=== PATIENT | female | born 1960 | race Caucasian/White ===

== ENCOUNTER → 2025-02-05 | Outpatient (CLI) | payer OTHER, SELFPAY ==
[2025-02-05 18:58] LABS: Hematocrit 47.2 % (37-47); Hemoglobin 15.5 g/dL (12.0-15.0); Immature Granulocytes Count 0.090 X10^3/uL (0.0-0.0); Mean Corp Hgb Conc 32.8 g/dL (32-36); Mean Corpuscular Volume 94.2 fL (81-99); Mean Platelet Vol. 9.9 fl (6.2-12.0); NRBC Flagged by Analyzer 0 % (0-5); Platelet Count 279 K/mm3 (150-450); RBC Distribution Width CV 13.2 % (11.6-14.6); RBC Distribution Width SD 45.5 fl (35.1-43.9); Red Blood Count 5.01 M/mm3 (4.2-5.4); White Blood Count 13.7 K/mm3 (4.4-11.0)
[2025-02-05 19:00] LABS: Anion Gap 14 (5-15); Carbon Dioxide 25.8 mmol/L (21.0-32.0); Chloride 96 mmol/L (98-108); Potassium 4.5 mmol/L (3.3-5.1)
[2025-02-07 16:09] LABS: Angiotensin Convert Enzyme 50 U/L (14-82)
== END | disposition home or self-care (01) ==
LOC: MTLAB 15:23
PROVIDERS: PCP Family Medicine; Referring Provider Internal Medicine Pulmonary Disease; Visit Provider Internal Medicine Pulmonary Disease
DX: J44.9 Chronic obstructive pulmonary disease, unspecified (principal)
CPT/HCPCS: 36415; 80051; 82164; 85025

== ENCOUNTER → 2025-03-01 | Outpatient (CLI) | payer OTHER, SELFPAY ==
--- NOTE | 2025-03-01 13:38 | ECHOD_ITS ---
Reason For Study Reason For Study: COPD Procedure This was a 2D Doppler, Color Flow transthoracic echocardiogram. Exam performed in department. Left Ventricle Normal LV size. The left ventricular ejection fraction is 60 %. Stage 1 diastolic dysfunction. No regional wall motion abnormalities noted. Right Ventricle Normal RV size. Normal systolic function. Atria Normal left atrium. Normal right atrium. Mitral Valve Normal mitral valve. Tricuspid Valve Normal tricuspid valve. Unable to estimate RV systolic pressure due to insufficient tricuspid regurgitant envelope. Aortic Valve Trisinus/trileaflet aortic valve. Pulmonic Valve Normal pulmonic valve. Great Vessels Normal aortic root. The pulmonary artery is normal size. Inferior vena cava collapse with respiration. Pericardium/Pleural No pericardial effusion. MMode/2D Measurements & Calculations LVIDd: 4.9 cm IVSd: 1.1 cm Ao root diam: 3.0 cm LVIDs: 3.3 cm LVPWd: 0.92 cm RVDd: 3.6 cm FS: 32.6 % LAV(MOD-sp4): 29.2 ml LVAd ap4: 21.2 cm2 SV(MOD-sp4): 32.0 ml LVLd ap4: 6.8 cm SI(MOD-sp4): 13.7 ml/m2 EDV(MOD-sp4): 54.6 ml EDV(sp4-el): 56.2 ml LVAs ap4: 11.2 cm2 LVLs ap4: 5.1 cm ESV(MOD-sp4): 22.6 ml ESV(sp4-el): 20.9 ml EF(MOD-sp4): 58.7 % EF(sp4-el): 62.8 % SV(sp4-el): 35.3 ml LA A4 area: 12.7 cm2 LA dimension(2D): 3.3 cm RA A4 area: 12.3 cm2 Time Measurements MV dec time: 0.38 sec Doppler Measurements & Calculations MV E max jerome: 50.5 cm/sec Lat Peak E' Jerome: 7.9 cm/sec Med Peak E' Jerome: 5.1 cm/sec MV A max jerome: 53.9 cm/sec E/E' lat: 6.4 E/E' med: 9.9 MV E/A: 0.94 MV V2 max: 74.6 cm/sec Ao V2 max: 145.0 cm/sec MV max P.2 mmHg MV dec slope: 135.6 cm/sec2 Ao max P.4 mmHg MV V2 mean: 47.1 cm/sec Ao V2 mean: 103.4 cm/sec MV mean P.98 mmHg Ao mean P.8 mmHg MV V2 VTI: 21.4 cm Ao V2 VTI: 28.1 cm AV (velocity ratio): 0.95 LV V1 max: 127.0 cm/sec PA V2 max: 107.3 cm/sec LV V1 max P.5 mmHg PA V2 mean: 75.1 cm/sec LV V1 mean P.7 mmHg PA mean PG (full): 0.98 mmHg LV V1 mean: 90.3 cm/sec LV V1 VTI: 26.6 cm ECHO/Echo Complete Interpretation Summary The left ventricular ejection fraction is 60 %. Normal LV size. Stage 1 diastolic dysfunction. Unable to estimate RV systolic pressure due to insufficient tricuspid regurgita nt envelope. Ordering Physician: Max Ingram V Referring Physician: Max Ingram V Performed By: Emma Witt RCS
== END | disposition home or self-care (01) ==
LOC: CVS 13:37
PROVIDERS: PCP Family Medicine; Referring Provider Internal Medicine Pulmonary Disease; Visit Provider Internal Medicine Pulmonary Disease
DX: J44.9 Chronic obstructive pulmonary disease, unspecified (principal)
CPT/HCPCS: 93306